=== PATIENT | male | born 1995 | race Caucasian/White ===

== ENCOUNTER 2019-02-24 09:17 | Inpatient (IN) | payer MEDICAID ==
[~2019-02-24] VITALS: Ht 175.3 cm; Wt 65.8 kg
--- NOTE | 2019-02-24 09:20 | NUR ---
patient SITA from home, had seizure episode for 2 mins at home. -injury/trauma. Connected to the monitor and pulse ox. kept comfortable, will continue to monitor accordingly.
[2019-02-24] MEDS ORDERED: LORAZEPAM INJ 2 MG/ML VIAL ONE ×3 (09:22→10:10)
--- NOTE | 2019-02-24 09:22 | NUR ---
Patient having seizure episode MD at bedside, IV access initiated on the LAC g18 Ativan 2mg IVP given. on 02 @ 2lpm via NC.
[2019-02-24] MEDS ORDERED: LORAZEPAM INJ 2 MG/ML VIAL IVP ONE ×2 (09:30→10:00)
[2019-02-24] MEDS ORDERED: IV NS 0.9% 1,000 ML BAG IV ONE (09:30)
[2019-02-24] MEDS ORDERED: LEVETIRACETAM (500MG) 500 MG in IV NS 0.9% 100 ML IV ONE (09:30)
[2019-02-24] MEDS ORDERED: HALOPERIDOL LACTATE INJ 5 MG/ML VIAL ONE (09:42)
[2019-02-24] MEDS ORDERED: diphenhydrAMINE HCL 50 MG/ML VIAL ONE (09:42)
[2019-02-24] MEDS ORDERED: HALOPERIDOL LACTATE INJ 5 MG/ML VIAL IM ONE (10:00)
[2019-02-24] MEDS ORDERED: diphenhydrAMINE HCL 50 MG/ML VIAL IM ONE (10:00)
[2019-02-24 10:26] LABS: BASOPHILS # (AUTO) 0.1 /CMM (0.0-0.2); BASOPHILS % (AUTO) 0.8 % (0.0-2.0); EOSINOPHILS % (AUTO) 1.9 % (0.0-6.0); HEMATOCRIT 42 % (39-51); HEMOGLOBIN 14.2 g/dL (13.5-17.5); LYMPHOCYTES # (AUTO) 4.8 /CMM (0.8-4.8); LYMPHOCYTES % (AUTO) 51.7 % (20.0-44.0); MEAN CORPUSCULAR HGB CONC 34 g/dl (31.0-36.0); MEAN CORPUSCULAR VOLUME 91 fL (80-96); MONOCYTES # (AUTO) 0.2 /CMM (0.1-1.30); MONOCYTES % (AUTO) 2.4 % (2.0-12.0); NEUTROPHILS % (AUTO) 43.2 % (43.0-81.0); PLATELET COUNT (AUTO) 283 /CMM (150-450); RED BLOOD CELL COUNT(AUTO) 4.57 MIL/uL (4.5-6.0); WHITE BLOOD COUNT (AUTO) 9.3 K/uL (4.3-11.0)
[2019-02-24] MEDS ORDERED: LORAZEPAM INJ 2 MG/ML VIAL IV ONE (10:30)
[2019-02-24 10:32] LABS: CALCIUM, SERUM 9.2 mg/dL (8.5-10.1); CREATININE 1.7 mg/dL (0.6-1.3)
[2019-02-24 10:38] LABS: BILIRUBIN,DIRECT 0.1 mg/dL (0.0-0.2); BILIRUBIN,TOTAL 0.4 mg/dL (0.2-1.0); TOTAL PROTEIN, SERUM 7.8 g/dL (6.4-8.2)
[2019-02-24] MEDS ORDERED: LEVE500T20 PO (11:08)
--- NOTE | 2019-02-24 11:37 | NUR ---
PT STILL UNABLE TO HOLD STILL FOR CT HEAD
[2019-02-24 12:00] VITALS: BP 124/67
--- NOTE | 2019-02-24 12:25 | NUR ---
CALLED FOR [facility] BED, TURNED IN MOVE SHEET
--- NOTE | 2019-02-24 12:48 | NUR ---
PAGED JAYY HERNANDEZ
--- NOTE | 2019-02-24 13:30 | NUR ---
called [facility] and spoke to Katelin ROONEY for erna.
--- NOTE | 2019-02-24 13:47 | NUR ---
Transferred patient via gurney accompanied by RN and EMT in no apparent distress noted. Katelin RN at bedside to assume care.
--- NOTE | 2019-02-24 14:00 | NUR ---
MANAGER SERVICING NOTE PATIENT TRANSFERED BY [facility]EE[facility] FROM ER. LETHARGIC IV PATENT AND INTACT. VITALS STABLE WNL. PATIENT HAS CELL PHONE AND SHORTS BELONGINGS. ASSESSED, NO WOUNDS PRESENT NOT COMBATIVE AT THIS TIME. NO NEED FOR RESTRAINTS. WILL FOLLOW UP WEN DUTTON ORDERS WHEN SHE DOES ROUNDS. ALL NE4EDS MET THIS TIME. SEIZURE PRECAUTIONS IN PLACE SIDE RAILS UP, BED IN LOW POSITION CALL LIGHT WITHIN REACH. PATINET RERFUSED VACCINATIONS, PATIENT REFUSED TO GIVE UA SAMPLE AT THIS TIME. PATIENT IS UNCOOPERATIVE AND VERBALIZES HE WANTS TO GO [facility]OM[facility] TO RN, BUT KEEPS FALLING BACK ASLEEP. ORIENT PATIENT TO [id number], RN INFORMED PATIENT ON IMPORTANCE OF STAYING IN HOSPITAL A TTHIS TIME AND MEDICATION COMPLIANCE.
[2019-02-24] MEDS ORDERED: MAGNESIUM HYDROXIDE 30 ML UDC PO PRN (14:30)
[2019-02-24] MEDS ORDERED: HYDROCODONE/APAP 5/325MG 1 EACH TABLET PO PRN (14:30)
[2019-02-24] MEDS ORDERED: ONDANSETRON HCL/PF 4 MG/2 ML VIAL IVP PRN (14:30)
[2019-02-24] MEDS ORDERED: Z GUARD REMEDY 2 OZ OINT TP PRN (14:30)
[2019-02-24] MEDS ORDERED: LORAZEPAM INJ 2 MG/ML VIAL IV PRN (14:30)
[2019-02-24] MEDS ORDERED: IV NS 0.9% 1,000 ML IV PRN (14:30)
[2019-02-24] MEDS ORDERED: ACETAMINOPHEN 325 MG TABLET PO PRN (14:30)
[2019-02-24] MEDS ORDERED: ZOLPIDEM TARTRATE 5 MG TABLET PO PRN (14:30)
[2019-02-24] MEDS ORDERED: LEVETIRACETAM (500MG) 500 MG in IV NS 0.9% 100 ML IV SCH ×2 (14:30→21:00)
--- NOTE | 2019-02-24 15:00 | NUR ---
RN NOTE MD SAW3 PATIENT NEW ORDERS ENTERED RN WILL CARRY OUT. NO EPISODE OF SEIZURE AT THIS TIME. NEUROLOGY TO FOLLOW UP PER MD ORDER SEIZURE PRECAUTIONS IN PLACE SIDE RAILS UP, BED IN LOW POSITION CALL LIGHT WITHIN REACH. LUDYNET RERFUSED VACCINATIONS, PATIENT REFUSED TO GIVE UA SAMPLE AT THIS TIME. PATIENT IS UNCOOPERATIVE AND VERBALIZES HE WANTS TO GO [facility]OM[facility] TO RN, BUT KEEPS FALLING BACK ASLEEP. ORIENT PATIENT TO [id number], RN INFORMED PATIENT ON IMPORTANCE OF STAYING IN HOSPITAL A TTHIS TIME AND MEDICATION COMPLIANCE.
[2019-02-24 16:00] VITALS: BP 128/75
--- NOTE | 2019-02-24 17:00 | NUR ---
RN NOTE NEUROLOGY NEUROLOGY SAW PATIENT, ADJUSTMENT IN MEDICATION ORDERS PLACED. PATIENT AWARE. NO EPISODES OF SEIZURESW AT THIS TIME. SEIZURE PRECAUTIONS IN PLACE SIDE RAILS UP, BED IN LOW POSITION CALL LIGHT WITHIN REACH. PATIENT REFUSED VACCINATIONS, PATIENT REFUSED TO GIVE UA SAMPLE AT THIS TIME. PATIENT IS UNCOOPERATIVE AND VERBALIZES HE WANTS TO GO [facility] TO RN, BUT KEEPS FALLING BACK ASLEEP. ORIENT PATIENT TO [address], RN INFORMED PATIENT ON IMPORTANCE OF STAYING IN HOSPITAL A TTHIS TIME AND MEDICATION COMPLIANCE. PATIENT IS INFORMED HE NEEDS TO SIGN AMA FORM IF HE WANTS TO REFUSE [id number] AND LEAVE
--- NOTE | 2019-02-24 19:35 | NUR ---
WIRELESS CONSULTANT OPENING NOTE, RECEIVED PATIENT IN BED SLEEPING. A/O X4. PATIENT HR IS WNL [address] NORMAL SR, PATIENT HAS IV R HAND #18 PATENT AND NO INFILTRATION NOTED, PATIENT REFUSES IV FLUID. SEIZURE PRECAUTIONS IN PLACE SIDE RAILS UP, BED IN LOW POSITION CALL LIGHT WITHIN REACH. WILL CONTINUE TO MONITOR.
[2019-02-24 20:00] VITALS: BP 116/73
[2019-02-24 20:06] VITALS: BP 116/73
--- NOTE | 2019-02-24 20:15 | NUR ---
2015 TONEY DELEON NOTIFIED THAT PATIENT WANTS TO SIGN OUT AMA.
--- NOTE | 2019-02-24 20:45 | NUR ---
2044 PATIENT AWAKE IN BED AT THIS TIME. NO SEIZURE ACTIVITY NOTED. NO COMPLAINT OF PAIN WHEN ASKED. STATED GIRLFRIEND ON THE WAY TO PICK HIM UP. WHEN ASKED IF THERE IS ANYTHING WE CAN DO FOR HIM TO STAY HE DECLINED STATING " I JUST CAN'T GET COMFORTABLE HERE". ASKED HIM TO WAIT UNTIL WE FIND HIM SHIRT TO WEAR. PATIENT AGREED.
[2019-02-24] MEDS ORDERED: LEVETIRACETAM (500MG) 750 MG in IV NS 0.9% 100 ML IV SCH (21:00)
--- NOTE | 2019-02-24 21:16 | NUR ---
ENGRAVER NOTES, PATIENT REFUSED IV NS, PATIENT IS A/O X4, NO SEIZURE ACTIVITY AT THIS TIME. HE SAID HE IS LEAVING AND HIS GIRLFRIEND IS ON HER WAY TO PICK HIM UP. EDUCATED PATIENT ABOUT THE IMPORTANCE OF STAYING AND GETTING THE TREATMENT BUT HE STILL WANTED TO LEAVE. MD WAS NOTED AND AMA FORM WAS SIGHNED BY PATIENT. PATIENT WAS WEALD OUT IN A WHEELCHAIR AND LEFT IN HIS GIRLFRIEND'S CAR.
== END 2019-02-24 21:10 | disposition left against medical advice (07) | DRG 53 ==
LOC: ER 09:23 → TELE-TD 12:59 → TELE1 14:25
PROVIDERS: ADMIT Nurse Practitioner Acute Care; ATTEND Nurse Practitioner Acute Care
DX: G40.909 Epilepsy, unspecified, not intractable, without status epilepticus (principal); N17.0 Acute kidney failure with tubular necrosis; R79.89 Other specified abnormal findings of blood chemistry; N18.9 Chronic kidney disease, unspecified; Z91.14 Patient's other noncompliance with medication regimen
CPT/HCPCS: 36415; 70450-TC; 71045-TC; 80048-TC; 80076-TC; 82962-TC; 85025-TC; 87081-TC; G0378; J1200; J1630; J1953; J2060; J7030